=== PATIENT | female | born 1980 | race Caucasian/White ===

== ENCOUNTER 2020-10-03 05:40 | Inpatient (IN) ==
[2020-10-03] MEDS ORDERED: ceFAZolin 2,000 MG/50 ML DUPLEX IV ONE (05:47)
[2020-10-03] MEDS ORDERED: CITRIC ACID/SODIUM CITRATE 30 ML UDCUP PO ONE (05:47)
[2020-10-03] MEDS ORDERED: FAMOTIDINE 20 MG/2 ML VIAL IV ONE (05:54)
[2020-10-03] MEDS ORDERED: LACTATED RINGERS 1,000 ML IV ONE (05:54)
[2020-10-03] MEDS ORDERED: ONDANSETRON 4 MG/2 ML VIAL ONE (06:26)
[2020-10-03] MEDS ORDERED: BUPIVACAINE SPINAL 0.75% 2 ML AMP SPINAL ONE (06:26)
[2020-10-03] MEDS ORDERED: PHENYLEPHRINE 1 MG/10 ML SYRINGE IV ONE (06:28)
[2020-10-03] MEDS ORDERED: PHENYLEPHRINE 10 MG/1 ML VIAL IV ONE (06:29)
[2020-10-03 06:31] LABS: Basophils % 0.4 % (0.0-0.8); Eosinophils # 0.1 10*3/uL (0.0-0.87); Hematocrit 28.8 VOL% (35.7-47.0); Hemoglobin 9.7 GM/DL (12.0-16.0); Immature Granulocytes % 0.8 %; Immature Granulocytes Absolute 0.06 #; Lymphocytes # 1.5 10*3/uL (1.4-4.0); Lymphocytes % 20.9 % (21.3-54.2); Mean Corpuscular HGB Conc 33.7 GM/DL (32-36); Mean Corpuscular Volume 91.7 FL (87-102); Mean Platelet Volume 9.9 FL (9.6-12.0); Monocytes % 8.4 % (1.7-12.7); Neutrophils % 68.5 % (38.7-73.9); Platelet Count 198 T/CUMM (130-400); Red Blood Count 3.14 MC/CUMM (3.8-5.5); Red Cell Distribution Width 12.8 % (9.3-17.3); White Blood Count 7.1 T/CUMM (4-12)
[2020-10-03] MEDS: LACTATED RINGERS 1,000 ML IV SCH ×2 (06:41→16:41)
[2020-10-03 06:50] LABS: Albumin 2.8 G/DL (3.4-5.0); Bilirubin,Total 0.4 MG/DL (0.20-1.00); Calcium 9.2 MG/DL (8.5-10.1); Osmolality,Calculated 272.7 MOS/KG (273-304); Potassium 3.6 MMOL/L (3.5-5.1); Total Protein 6.8 G/DL (6.4-8.2)
[2020-10-03] MEDS ORDERED: OXYTOCIN/LR 20 UNIT/1,000 ML BAG IV ONE ×2 (07:03→08:18)
[2020-10-03] MEDS ORDERED: LIDOCAINE 2% 5 ML VIAL ONE (08:13)
[2020-10-03] MEDS ORDERED: propofoL 200 MG/20 ML VIAL IV ONE (08:13)
[2020-10-03] MEDS ORDERED: ACETAMINOPHEN INJ 1,000 MG/100 ML VIAL IV ONE (08:13)
[2020-10-03] MEDS ORDERED: LANOLIN 50% CREAM 0.3 OZ TUBE TOP PRN (08:18)
[2020-10-03] MEDS ORDERED: oxyCODONE/ACETAMINOPHEN 5-325 MG TABLET PO PRN (08:18)
[2020-10-03] MEDS ORDERED: MEASLES/MUMPS/RUBELLA VACCINE 0.5 ML VIAL SUBCUT ONE (08:18)
[2020-10-03] MEDS ORDERED: RHO(D) IMMUNE GLOBULIN 300 MCG SYRINGE IM ONE (08:18)
[2020-10-03] MEDS ORDERED: BENZOCAINE 20%/MENTHOL 0.5% SPRAY 56 GM CAN TOP PRN (08:18)
[2020-10-03] MEDS ORDERED: ACETAMINOPHEN 325 MG TABLET PO PRN (08:18)
[2020-10-03] MEDS ORDERED: WITCH HAZEL PADS 100/JAR TOP PRN (08:18)
[2020-10-03] MEDS ORDERED: BISACODYL 10 MG SUPP RECTAL PRN (08:18)
[2020-10-03] MEDS ORDERED: DIPH/TET/ACEL PERT BOOSTER VACCINE 0.5 ML VIAL IM ONE (08:18)
[2020-10-03] MEDS ORDERED: ONDANSETRON 4 MG/2 ML VIAL IV PRN (08:18)
[2020-10-03] MEDS ORDERED: HYDROCORTISONE 2.5% RECTAL CREAM 30 GM TUBE TOP PRN (08:18)
[2020-10-03 08:28] LABS: Cord Venous Blood PO2 30.1
[2020-10-03] MEDS ORDERED: PANTOPRAZOLE 20 MG PO SCH (11:47)
[2020-10-03] MEDS: oxyCODONE/ACETAMINOPHEN 5-325 MG TABLET PO PRN (12:45)
[2020-10-03] MEDS: ACETAMINOPHEN 500 MG TABLET PO SCH ×2 (14:59→18:42)
[2020-10-03] MEDS: IBUPROFEN 800 MG TABLET PO PRN (18:20)
[2020-10-04] MEDS: ACETAMINOPHEN 500 MG TABLET PO SCH (00:30)
[2020-10-04] MEDS: oxyCODONE/ACETAMINOPHEN 5-325 MG TABLET PO PRN ×3 (01:51→20:12)
[2020-10-04] MEDS: IBUPROFEN 800 MG TABLET PO PRN ×3 (01:51→21:18)
[2020-10-04 05:46] LABS: Basophils % 0.3 % (0.0-0.8); Eosinophils # 0.1 10*3/uL (0.0-0.87); Eosinophils % 0.9 % (0.00-10.9); Hematocrit 26.1 VOL% (35.7-47.0); Hemoglobin 8.8 GM/DL (12.0-16.0); Immature Granulocytes % 0.6 %; Immature Granulocytes Absolute 0.06 #; Lymphocytes # 1.5 10*3/uL (1.4-4.0); Lymphocytes % 14.2 % (21.3-54.2); Mean Corpuscular HGB Conc 33.7 GM/DL (32-36); Mean Corpuscular Volume 90.9 FL (87-102); Mean Platelet Volume 9.9 FL (9.6-12.0); Monocytes % 6.4 % (1.7-12.7); Neutrophils % 77.6 % (38.7-73.9); Platelet Count 154 T/CUMM (130-400); Red Blood Count 2.87 MC/CUMM (3.8-5.5); White Blood Count 10.4 T/CUMM (4-12)
[2020-10-04] MEDS: MAGNESIUM HYDROXIDE SUSP 30 ML UDCUP PO PRN ×2 (08:53→21:12)
[2020-10-04] MEDS: FERROUS SULFATE 325 MG TABLET PO SCH ×2 (08:53→21:12)
[2020-10-04] MEDS: DOCUSATE SODIUM 100 MG CAPSULE PO SCH ×2 (08:53→21:12)
[2020-10-04] MEDS: SIMETHICONE CHEW 80 MG TABLET PO PRN (08:53)
[2020-10-05] MEDS: SIMETHICONE CHEW 80 MG TABLET PO PRN (03:24)
[2020-10-05] MEDS: oxyCODONE/ACETAMINOPHEN 5-325 MG TABLET PO PRN (04:50)
[2020-10-05] MEDS: FERROUS SULFATE 325 MG TABLET PO SCH (08:14)
[2020-10-05] MEDS: MAGNESIUM HYDROXIDE SUSP 30 ML UDCUP PO PRN (08:14)
[2020-10-05] MEDS: DOCUSATE SODIUM 100 MG CAPSULE PO SCH (08:14)
[2020-10-05 08:32] VITALS: BP 115/71
[2020-10-05] MEDS ORDERED: HYDROCORTISONE 1% CREAM 28 GM TUBE TOP PRN (11:14)
== END 2020-10-05 13:10 | disposition home or self-care (01) | DRG 787 ==
LOC: N.LD 05:40 → N.OB 12:05
PROVIDERS: ADMIT Specialist; ATTEND Specialist
PROC: LDCSECT (ICD-10-PCS; 2020-10-03 07:30)